=== PATIENT | male | born 1970 | race Caucasian/White ===

== ENCOUNTER → 2019-12-25 | Outpatient (CLI) | payer BC ==
[2019-12-25 10:03] LABS: ABSOLUTE BASOPHILS # (AUTO) 0.1 10^3/uL (0.0-0.2); ABSOLUTE EOSINOPHILS # (AUTO) 0.4 10^3/uL (0.0-0.6); ABSOLUTE LYMPHOCYTES (AUTO) 2.2 10^3/uL (0.5-4.7); ABSOLUTE MONOCYTES (AUTO) 0.7 10^3/uL (0.1-1.4); ABSOLUTE NEUT (AUTO) 2.9 10^3/uL (1.7-8.2); EOSINOPHILS % (AUTO) 6.8 % (0-6); HEMATOCRIT 41.3 % (37.9-51.0); HEMOGLOBIN 14.6 g/dL (13.5-17.0); LYMPHOCYTES % (AUTO) 34.5 % (13-45); MEAN CORPUSCULAR HEMOGLOBIN 32.5 pg (27.0-33.4); MEAN CORPUSCULAR HGB CONC 35.4 g/dL (32.0-36.0); MEAN CORPUSCULAR VOLUME 92 fl (80-97); MONOCYTES % (AUTO) 11.2 % (3-13); PLATELET COUNT 239 10^3/uL (150-450); RED CELL DISTRIBUTION WIDTH 13.7 % (11.5-14.0); SEGMENTED NEUTROPHILS % (AUTO) 46.5 % (42-78); TOTAL CELLS COUNTED % (AUTO) 100 %; WHITE BLOOD COUNT 6.2 10^3/uL (4.0-10.5)
[2019-12-25 10:05] LABS: APPEARANCE,URINE CLEAR; BILIRUBIN,URINE NEGATIVE (NEGATIVE); COLOR,URINE STRAW; GLUCOSE, URINE NEGATIVE (NEGATIVE); KETONES,URINE NEGATIVE (NEGATIVE); LEUKOCYTE ESTERASE,URINE NEGATIVE (NEGATIVE); NITRITE,URINE NEGATIVE (NEGATIVE); PROTEIN,URINE NEGATIVE (NEGATIVE); URINE SPECIFIC GRAVITY 1.011; UROBILINOGEN,URINE NEGATIVE mg/dL (<2.0)
[2019-12-25 10:24] LABS: ANION GAP 10 (5-19); BLOOD UREA NITROGEN 22 mg/dL (7-20); CALCIUM 9.4 mg/dL (8.4-10.2); CARBON DIOXIDE 24 mmol/L (22-30); CHLORIDE 103 mmol/L (98-107); GLUCOSE 72 mg/dL (75-110); POTASSIUM 4.8 mmol/L (3.6-5.0)
--- NOTE | 2019-12-25 12:38 | RADIOLOGY REPORT (SQ) ---
EXAM DESCRIPTION: CHEST PA/LATERAL IMAGES COMPLETED DATE/TIME: 12/25/2019 9:29 am REASON FOR STUDY: PRE-OP COMPARISON: None. EXAM PARAMETERS: NUMBER OF VIEWS: two views TECHNIQUE: Digital Frontal and Lateral radiographic views of the chest acquired. RADIATION DOSE: NA LIMITATIONS: none FINDINGS: LUNGS AND PLEURA: No opacities, masses or pneumothorax. No pleural effusion. MEDIASTINUM AND HILAR STRUCTURES: No masses or contour abnormalities. HEART AND VASCULAR STRUCTURES: Heart normal size. No evidence for failure. BONES: No acute findings. HARDWARE: None in the chest. OTHER: No other significant finding. IMPRESSION: 1. NO SIGNIFICANT RADIOGRAPHIC FINDING IN THE CHEST. TECHNICAL DOCUMENTATION: JOB ID: [id number] 2010 [employer]- All Rights Reserved Reading location - IP/workstation name: [email or web address]
--- NOTE | 2019-12-25 22:58 | EKG REPORT ---
SEVERITY:- ABNORMAL ECG - ATRIAL FIBRILLATION, V-RATE 76-121 BORDERLINE T ABNORMALITIES, INFERIOR LEADS : Confirmed by: Rigoberto Amaya 25-Dec-2019 22:57:17
== END ==
LOC: OD 08:30 → EDSTATUS 12-30 10:30
PROVIDERS: ATTEND Orthopaedic Surgery
DX: Z01.812 Encounter for preprocedural laboratory examination (principal)
CPT/HCPCS: 36415; 71046; 80048; 81001; 85025; 87635; 93005; 93010

== ENCOUNTER 2020-09-07 05:24 | Day surgery (SDC) | payer BC ==
[2020-09-03 11:22] LABS: HEMATOCRIT 40.8 % (37.9-51.0); HEMOGLOBIN 14.2 g/dL (13.5-17.0); MEAN CORPUSCULAR HEMOGLOBIN 31.6 pg (27.0-33.4); MEAN CORPUSCULAR HGB CONC 34.7 g/dL (32.0-36.0); MEAN CORPUSCULAR VOLUME 91 fl (80-97); PLATELET COUNT 225 10^3/uL (150-450); RED BLOOD COUNT 4.48 10^6/uL (4.35-5.55); RED CELL DISTRIBUTION WIDTH 13.2 % (11.5-14.0); WHITE BLOOD COUNT 6.2 10^3/uL (4.0-10.5)
[2020-09-03 11:35] LABS: APPEARANCE,URINE CLEAR; BILIRUBIN,URINE NEGATIVE (NEGATIVE); COLOR,URINE YELLOW; GLUCOSE, URINE NEGATIVE (NEGATIVE); KETONES,URINE NEGATIVE (NEGATIVE); LEUKOCYTE ESTERASE,URINE NEGATIVE (NEGATIVE); NITRITE,URINE NEGATIVE (NEGATIVE); PROTEIN,URINE NEGATIVE (NEGATIVE); URINE SPECIFIC GRAVITY 1.019; UROBILINOGEN,URINE NEGATIVE mg/dL (<2.0)
[2020-09-03 11:54] LABS: ANION GAP 6 (5-19); BLOOD UREA NITROGEN 21 mg/dL (7-20); CARBON DIOXIDE 27 mmol/L (22-30); CHLORIDE 105 mmol/L (98-107); GLUCOSE 102 mg/dL (75-110); POTASSIUM 4.8 mmol/L (3.6-5.0)
--- NOTE | 2020-09-03 12:00 | EKG REPORT ---
SEVERITY:- ABNORMAL ECG - SINUS RHYTHM NONSPECIFIC ST-T CHANGES- INFERIOR LEADS (PERSISTENT). EARLY PRECORDIAL TRANSITION , NEED TO R/O OLD TRUE POST OR ETC. COMPARING WITH 12/25/19 EKG,HE IS IN NSR AND NOT IN A FIB. : Confirmed by: Antony Fragoso MD 03-Sep-2020 12:00:00
[~2020-09-07 05:24] MED LIST: CEFAZOLIN 2 GM/D5W RTU 2 GM/50 ML RTUPB IV PRN; LACTATED RINGERS 1000 ML IV PRN; LIDOCAINE 0.5% INJ-PF (5 MG/ML) 50 ML SDV SUBCUT PRN
[2020-09-07] MEDS ORDERED: CEFAZOLIN 2 GM/D5W RTU 2 GM/50 ML RTUPB IV ONE (05:39)
[2020-09-07] MEDS ORDERED: EPINEPHRINE INJ/PF 1 MG/1 ML AMPULE ONE (07:11)
[2020-09-07] MEDS ORDERED: BUPIVACAINE HCL 0.5 % INJ/PF 30 ML SDV ONE (07:11)
[2020-09-07] MEDS ORDERED: HYDROCODONE/ACETAMINOPHEN 5-325 MG TABLET PO PRN (07:35)
[2020-09-07] MEDS ORDERED: ONDANSETRON HCL 8 MG TABLET PO PRN (07:35)
--- NOTE | 2020-09-07 07:37 | Discharge Summary ---
Discharge Summary (SDC) - Discharge Final Diagnosis: Left Elbow Arthritis with contracture and Cubital Tunnel Syndrome. Date of Surgery: 09/07/20 Discharge Date: 09/07/20 Condition: Stable Treatment or Instructions: Schedule Follow Up w/ Dr. Yunier Schofield @ [facility] for Surgery to be seen in 10-14 days or as scheduled [place]: [place]: [place]: May remove dressing on postop day #3, keep incision covered and dry. Ice and Elevate Affected Extremity. May remove sling for hygiene purposes otherwise continue it at all times. Stool softener of choice when on pain medication. USE OF SFTI-[id number]-[id number] IBUPROFEN: Ibuprofen (Advil, Nuprin, Medipren, Motrin IB) is a medication for fever and pain control. In addition, it has anti- inflammatory effects which may be beneficial, especially in the treatment of injuries. It's best to take ibuprofen with food. Persons with ulcer disease or allergy to aspirin should notify their physician of this before taking ibuprofen. Ibuprofen can be given every four to six hours, for a total of four doses daily. Age Pain or fever dose Antiinflammatory dose 6-8 yr 200 mg (1 tab) 200 mg (1 tab) 9-11 yr 200 mg (1 tab) 200-400 mg (1-2 tab) 11-14 yr 200-400 mg (1-2 tab) 400 mg (2 tab) 15-adult 400 mg (2 tab) 600 mg (3 tab) ORAL NARCOTIC MEDICATION: You have been given a prescription for pain control. This medication is a narcotic. It's best taken with food, as nausea can result if taken on an empty stomach. Don't operate machinery or drive within six hours of taking this medication. Do not combine this medicine with alcohol, or with any medication which can cause sedation (such as cold tablets or sleeping pills) unless you get permission from the physician. Narcotics tend to cause constipation. If possible, drink plenty of fluids and eat a diet high in fiber and fruits. Please be aware that prescription narcotics also have the potential for abuse. People become addicted to these medications because of the general sense of wellbeing that they induce. This feeling along with a significant reduction in tension, anxiety, and aggression provides a stimulating seductive quality to these drugs. Once your pain is under control, we encourage you to discard your unused narcotics. Referrals: RIMA VIVAR PA-C [Primary Care Provider] - Discharge Diet: As Tolerated Respiratory Treatments at Home: Deep Breathing/Coughing Discharge Activity: Activity As Tolerated Report the Following to Your Physician Immediately: Shortness of Breath, Fever over 101 Degrees, Drainage-Yellow
[2020-09-07] MEDS ORDERED: MEPERIDINE HCL/PF INJ 25 MG/1 ML DISP.SYRIN IV PRN (08:15)
[2020-09-07] MEDS ORDERED: ONDANSETRON HCL INJ/PF 4 MG/2 ML SDV IV PRN (08:15)
[2020-09-07] MEDS ORDERED: FENTANYL CITRATE INJ/PF 100 MCG/2 ML AMPUL IV PRN ×3 (08:15)
[2020-09-07] MEDS ORDERED: MORPHINE SULFATE 10 MG/ML INJ IV PRN (08:15)
[2020-09-07] MEDS ORDERED: DIPHENHYDRAMINE HCL 50 MG/ML VIAL IV PRN (08:15)
[2020-09-07] MEDS ORDERED: PROMETHAZINE HCL INJ 25 MG/1 ML VIAL IV PRN ×2 (08:15)
--- NOTE | 2020-09-07 10:34 | Operative Report ---
Operative Report DATE OF SURGERY: 09/07/20 PREOPERATIVE DIAGNOSIS: Left elbow osteoarthritis with contracture POSTOPERATIVE DIAGNOSIS: Same OPERATION: Left elbow arthroscopy with extensive debridement including removal of osteophytes, capsular release, OuterbridgeKawasaki arthroplasty. Left elbow in situ cubital tunnel release SURGEON: BETTY ONEILL 1ST CARTOGRAPHY TECHNICIAN: MARISOL ROSS - Required for patient positioning and arthroscopic retractor placement. ANESTHESIA: GA COMPLICATIONS: None ESTIMATED BLOOD LOSS: Minimal PROCEDURE: Indication for above procedure: 50-year-old male with longstanding history of osteoarthritis of his left elbow with contracture. Patient had preoperative work-up including radiographs and MRI consistent with degenerative changes and osteophytes likely resulting in mechanical block to range of motion. We discussed treatment options including operative versus nonoperative intervention of discussing risk benefits joint decision was made to proceed with operative treatment. Procedure In Detail: Patient was seen and evaluated in the preoperative holding area. The LEFT upper extremity was initialized and marked. Patient received 2g of Ancef IV for bacterial prophylaxis. Patient was taken back to the operative room where transferred to the operative table and placed under general anesthesia. Once they were adequately anesthetized patient placed in the lateral position. Cervical spine was placed in neutral position all bony prominences were padded including nonoperative upper extremity and bilateral lower extremity. Extremity was placed in the Western arm ahuja. A surgical team debriefing was performed ensuring all instrumentation was available, the surgical procedure was discussed with possible concerns reviewed. The upper extremity was prepped with ChloraPrep draped in a sterile fashion. A timeout was done identifying correct patient, procedure and extremity everyone in attendance agree with this and verbalized no concerns. Extremity was then exsanguinated and tourniquet was inflated 250 mmHg. Given patient's limited flexion decision was made to proceed with in situ cubital tunnel release originally. Longitudinal skin incision was made along the cubital tunnel. Blunt dissection was performed. Branches of the medial antebrachial cutaneous nerve were identified and retracted. Barclay's ligament was then approached and released. The ulnar nerve was identified and released proximally at the level of the intermuscular septum. Finger dissection was performed proximally to ensure adequate release. Dissection then continued distally and the fascia overlying the FCU was identified and released. No residual compression bands were appreciated distally. Finger dissection was done distally as well to ensure no evidence of compression. There is no evidence of ulnar nerve subluxation with elbow range of motion. Attention then turned to arthroscopy. The joint was insufflated with 15 cc of saline. A proximal anterior medial portal was established and the ulnar nerve was palpated. Arthroscope was advanced into the elbow joint. Via triangulation a proximal anterior lateral portal was established 2 cm proximal 1 cm anterior to the lateral epicondyle. Diagnostic arthroscopy demonstrated significant degenerative change of the rad ial capitellar joint ulnohumeral joint. A mid lateral portal was established to use as a working portal for soft tissue retraction. Osteophytes noted along the coronoid fossa and along the capitellum proximally. Under fact visualization the osteophytes along the capitellum were resected with an arthroscopic bur. The arthroscope was then introduced into the lateral portal with a switching stick. The coronoid was then identified and cleared of soft tissue. An osteotome was introduced in the coronoid tip was removed. Edges were then contoured with the arthroscopic bur. Bony overgrowth noted along the coronoid fossa which was identified preoperatively and the MRI scan was then resected. With the trocar the capsule was lifted from the anterior humerus to provide further extension of the joint. No remanent loose bodies were appreciated. The joint was then debrided and bony edges contoured. Attention then turned to the posterior compartment. A posterior mid lateral portal was established arthroscope was introduced. A posterior central portal was then established and the olecranon fossa was debrided. There is a significant osteophyte noted along the olecranon fossa this osteophyte was resected. A posterior lateral portal was then established as a working portal. With the osteotome the tip of the olecranon was removed. The edges were contoured with a bur. Utilizing the Acumed bone biopsy" a central core of the olecranon fossa was excised. Completing the Outerbridge Kawasaki arthroplasty the edges were debrided with a bur including overhanging osteophytes. Elbow was then placed through range of motion patient had flexion of 140 degrees with extension of -10 degrees. There is no crepitus with range of motion. Full pronation/supination. Posterior compartment was further debrided to ensure no remaining osseous fragments. Tourniquet was deflated. Wounds were then copiously irrigated with normal saline. Subcutaneous tissue closed interrupted 3-0 Monocryl suture. Skin was closed with nylon suture. Wound was dressed Xeroform for fours ABD and a soft dressing. Sponge counts, instrument counts, needle counts were correct. Patient was then awoken from anesthesia. Transferred from the operating room table to the operating room stretcher. There was no intraoperative complications patient tolerated procedure well stable to PACU. Postop plan: Patient follow in the office in 2 weeks for wound check. Will begin occupational therapy 48 hours postoperatively.
[2020-09-07] MEDS ORDERED: MORPHINE SULFATE 10 MG/ML INJ ONE (11:08)
[2020-09-07] MEDS ORDERED: GLYCOPYRROLATE 1 MG/5 ML VIAL ONE (13:46)
[2020-09-07] MEDS ORDERED: SUCCINYLCHOLINE CHLORIDE INJ 200 MG/10 ML VIAL ONE (13:46)
[2020-09-07 14:41] VITALS: BP 119/86
== END 2020-09-07 14:10 | disposition home or self-care (01) ==
LOC: OROUT 05:24
PROVIDERS: ATTEND Orthopaedic Surgery
DX: M19.022 Primary osteoarthritis, left elbow (principal); G56.22 Lesion of ulnar nerve, left upper limb; M24.522 Contracture, left elbow; I10 Essential (primary) hypertension; F41.3 Other mixed anxiety disorders; F32.9 Major depressive disorder, single episode, unspecified; Z01.812 Encounter for preprocedural laboratory examination; Z20.822 Contact with and (suspected) exposure to COVID-19; Z79.899 Other long term (current) drug therapy
CPT/HCPCS: 93005; 36415; 85027; 80048; 81001; 93010; 24999; 64718; U0003; J0171; J2270; J0330; J0690; J3490; C9803; 87635